=== PATIENT | female | born 1950 | race African-American/Black ===

== ENCOUNTER 2017-01-28 10:33 | Day surgery (SDC) | payer MEDICARE ==
--- NOTE | ~2017-01-28 | EGD ---
EGD REPORT [facility] [address] [address] NAME: JO PATRICK : [birth year] [place]US : [place] [facility] [place] [id number] AGE: 66 ADM/REG DATE : 01/28/17 MR#: [id number] REPORT SERV DATE: 01/28/17 DICTATED BY: SIL RICKS DATE: 01/28/17 REPORT STATUS : Draft [facility]ANSCRIBED BY: [facility] DATE: 01/28/17 Endoscopy Center Patient Name: Jo Patrick Date of : 1950 Attending MD: SIL RICKS MD Procedure Date No Time: 01/28/2017 Procedure: Upper GI endoscopy Indications: Epigastric abdominal pain, Heartburn Referring MD: EVAN MUJICA Medicines: Monitored Anesthesia Care Complications: No immediate complications. Procedure: Pre-Anesthesia Assessment: - ASA Grade Assessment: II - A patient with mild systemic disease. After obtaining informed consent, the endoscope was passed under direct vision. Throughout the procedure, the patient's blood pressure, pulse, and oxygen saturations were monitored continuously. The GIF [id number] was introduced through the mouth, and advanced to the second part of duodenum. The upper GI endoscopy was accomplished without difficulty. The patient tolerated the procedure well. Findings: The examined esophagus was normal. A small hiatus hernia was present. The cardia and gastric fundus were normal on retroflexion. Localized moderately erythematous mucosa without active bleeding and with no stigmata of bleeding was found in the second part of the duodenum. Biopsies were taken with a cold forceps for histology. Impression: - Normal esophagus. - Hiatus hernia. - Erythematous duodenopathy. Biopsied. Recommendation: - Await pathology results. - Follow an antireflux regimen. Procedure Code(s): --- Professional --- 00656, Esophagogastroduodenoscopy, flexible, transoral; with biopsy, single or multiple Diagnosis Code(s): --- Professional --- K44.9, Diaphragmatic hernia without obstruction or gangrene EGD REPORT [address] [place]. [address] NAME: JO PATRICK : [birth year] STATUS : REG [facility]#: [id number] AGE: 66 ADM/REG DATE : 01/28/17 MR#: [id number] REPORT SERV DATE: 01/28/17 DICTATED BY: SIL RICKS DATE: 01/28/17 REPORT STATUS : Draft TRANSCRIBED BY: [employer] DATE: 01/28/17 K31.89, Other diseases of stomach and duodenum R10.13, Epigastric pain R12, Heartburn CPT copyright 2013 [employer]. All rights reserved. The codes documented in this report are preliminary and upon mechanical press operator review may be revised to meet current compliance requirements. SIL RICKS MD 01/28/2017 1:14 PM This report has been signed electronically. Number of Addenda: 0 Note Initiated On: 01/28/2017 1:00 PM Scope Withdrawal Time 0 hours 0 minutes 0 seconds
--- NOTE | ~2017-01-28 | EGD ---
EGD REPORT [facility] [address] [address] NAME: JO KHAN : [birth year] STATUS : REG [facility] [place] PAT#: [id number] AGE: 66 ADM/REG DATE : 01/28/17 MR#: [id number] REPORT SERV DATE: 01/28/17 DICTATED BY: SIL RICKS DATE: 01/28/17 REPORT STATUS : Draft [facility]ANSCRIBED BY: [facility] DATE: 01/28/17 Endoscopy Center Patient Name: oJ Khan Date of : 1950 Attending MD: SIL RICKS MD Procedure Date No Time: 01/28/2017 Procedure: Colonoscopy Indications: Change in bowel habits, Constipation, Diarrhea Referring MD: EVAN MUJICA Medicines: Monitored Anesthesia Care Complications: No immediate complications. Procedure: Pre-Anesthesia Assessment: - ASA Grade Assessment: II - A patient with mild systemic disease. After I obtained informed consent, the scope was passed under direct vision. Throughout the procedure, the patient's blood pressure, pulse, and oxygen saturations were monitored continuously. The PCF [id number] was introduced through the anus and advanced to the cecum, identified by appendiceal orifice and ileocecal valve. The colonoscopy was performed with moderate difficulty due to significant looping. Successful completion of the procedure was aided by applying abdominal pressure. The patient tolerated the procedure well. The quality of the bowel preparation was adequate. Findings: The digital rectal exam was normal. Pertinent negatives include no palpable rectal lesions. Multiple diverticula were found in the sigmoid colon. The colon (entire examined portion) appeared normal. Biopsies were taken with a cold forceps from the ascending colon and sigmoid colon for evaluation of microscopic colitis. Hemorrhoids were found during retroflexion and were moderate. Impression: - Diverticulosis in the sigmoid colon. - The entire examined colon is normal. Biopsied. - Hemorrhoids. Recommendation: - Patient has a contact number available for emergencies. The signs and symptoms of potential delayed complications were discussed with the patient. Return to normal activities tomorrow. Written discharge instructions were provided to the patient. - Regular diet. EGD REPORT [address] [place]. [address] NAME: JO KHAN : [birth year] STATUS : REG [facility] [place] PAT#: [id number] AGE: 66 ADM/REG DATE : 01/28/17 MR#: [id number] REPORT SERV DATE: 01/28/17 DICTATED BY: SIL RCIKS DATE: 01/28/17 REPORT STATUS : Draft TRANSCRIBED BY: [employer] DATE: 01/28/17 - Continue present medications. - Await pathology results. - Return to GI clinic in 1 month. - Repeat colonoscopy in 5 years for surveillance. Procedure Code(s): --- Professional --- 05260, Colonoscopy, flexible, proximal to splenic flexure; with biopsy, single or multiple Diagnosis Code(s): --- Professional --- K64.9, Unspecified hemorrhoids K57.30, Diverticulosis of large intestine without perforation or abscess without bleeding R19.4, Change in bowel habit K59.00, Constipation, unspecified R19.7, Diarrhea, unspecified CPT copyright 2013 [employer]. All rights reserved. The codes documented in this report are preliminary and upon electronic coils supervisor review may be revised to meet current compliance requirements. SIL RICKS MD 01/28/2017 1:36 PM This report has been signed electronically. Number of Addenda: 0 Note Initiated On: 01/28/2017 1:04 PM Scope Withdrawal Time 0 hours 7 minutes 48 seconds [address] [place] [address]
[~2017-01-28 10:33] MED LIST: ALEVE220 MG PO; ALLEGRA180 PO; GLUCPH PO; NORV5 PO; PROAIR HFA INH; SUCR PO; ZANTAC150 MG PO
== END 2017-01-28 23:59 | disposition home or self-care (01) ==
LOC: DMU 10:33
PROVIDERS: Internal Medicine Gastroenterology
PROC: 0DBE8ZX Excision of Large Intestine, Via Natural or Artificial Opening Endoscopic, Diagnostic (ICD-10-PCS; principal; 2017-01-28 12:30)
PROC: 0DB98ZX Excision of Duodenum, Via Natural or Artificial Opening Endoscopic, Diagnostic (ICD-10-PCS; 2017-01-28 12:30)
DX: K59.00 Constipation, unspecified (principal); K64.9 Unspecified hemorrhoids; K57.30 Diverticulosis of large intestine without perforation or abscess without bleeding; K44.9 Diaphragmatic hernia without obstruction or gangrene; K31.89 Other diseases of stomach and duodenum; K21.9 Gastro-esophageal reflux disease without esophagitis; J45.909 Unspecified asthma, uncomplicated; E11.9 Type 2 diabetes mellitus without complications; M19.90 Unspecified osteoarthritis, unspecified site; D64.9 Anemia, unspecified; I10 Essential (primary) hypertension; Z91.041 Radiographic dye allergy status; Z88.8 Allergy status to other drugs, medicaments and biological substances; Z79.899 Other long term (current) drug therapy; Z98.890 Other specified postprocedural states; Z90.49 Acquired absence of other specified parts of digestive tract
CPT/HCPCS: 82962; 88305